=== PATIENT | female | born 1960 | race Caucasian/White ===

== ENCOUNTER 2018-04-03 13:50 | Inpatient (IN) | payer BC ==
--- NOTE | 2018-04-03 14:29 | ED ---
Shortness of Breath - HPI Summary HPI Summary: This is scribe Henry Hunt documenting for attending Usman Paz MD. Patient is a 57 y/o F w/ c/o SOB. She reports going to her oncologist today for her leukemia. Her doctor noted low O2 sat levels (patient believes she heard her doctor say 87 O2 sat) which prompted the hospital visit today. She reports constant SOB over the past month. The presence of a cough and wheezing are noted as well. Fever, chills and chest pain are denied. On triage, pain is denied and it is noted exertion worsens Sx with nothing alleviating. Hx of COPD is noted, and patient has inhaler. Home medications and allergies are reviewed and noted. - History of Current Complaint Chief Complaint: EDShortnessOfBreath Time Seen by Provider: 04/03/18 14:26 Hx Obtained From: Patient Onset/Duration: Lasting Weeks - onset a month ago, Still Present Timing: Constant Current Severity: None - pain is denied on triage Aggrevating Factors: Other - exertion Alleviating Factors: Nothing Associated Signs & Symptoms: Cough (Nonproductive) - Allergy/Home Medications Allergies/Adverse Reactions: Allergies Allergy/AdvReac Type Severity Reaction Status Date / Time No Known Allergies Allergy Verified 04/03/18 14:05 Home Medications: Home Medications Albuterol HFA INHALER* [Ventolin HFA Inhaler*] 1 puff INH Q6H PRN 04/03/18 [ History Confirmed 04/03/18] Ascorbic Acid TAB* [Vitamin C TAB*] 500 mg PO QAM 04/03/18 [History Confirmed 04/03/18] Budesonide/Formote 160/4.5(NF) [Symbicort 160/4.5 (NF)] 1 puff INH BID 04/03/18 [History Confirmed 04/03/18] Cyanocobalamin TAB* [Vitamin B12 TAB*] 500 mcg PO QAM 04/03/18 [History Confirmed 04/03/18] Multivitamins/Minerals TAB* [Theragran/minerals TAB*] 1 tab PO QAM 04/03/18 [ History Confirmed 04/03/18] Potassium Gluconate [Potassium] 600 mg PO QAM 04/03/18 [History Confirmed ] Vitamin E CAP* 200 unit PO QAM 04/03/18 [History Confirmed 04/03/18] PMH/Surg Hx/FS Hx/Imm Hx Respiratory History: Reports: Hx Chronic Obstructive Pulmonary Disease (COPD) GI History: Reports: Hx Diverticulosis Opthamlomology History: Denies: Hx Legally Blind - Cancer History Cancer Type, Location and Year: leukemia Hx Chemotherapy: No Hx Radiation Therapy: No - Surgical History Surgery Procedure, Year, and Place: none noted Infectious Disease History: No Infectious Disease History: Denies: Traveled Outside the [place] in Last 30 Days - Family History Known Family History: Negative: Blood Disorder - Social History Alcohol Use: Daily - wine daily Hx Substance Use: Yes Substance Use Type: Reports: Marijuana Hx Tobacco Use: Yes Smoking Status (MU): Heavy Every Day Tobacco Smoker Review of Systems Negative: Fever, Chills Negative: Chest Pain Positive: Shortness Of Breath, Cough, Other - wheezing All Other Systems Reviewed And Are Negative: Yes Physical Exam - Summary Physical Exam Summary: VITAL SIGNS: Reviewed. GENERAL: Patient is a well-developed and nourished female who is lying comfortable in the stretcher. Patient is not in any acute respiratory distress. HEAD AND FACE: No signs of trauma. No ecchymosis, hematomas or skull depressions. No sinus tenderness. EYES: PERRLA, EOMI x 2, No injected conjunctiva, no nystagmus. EARS: Hearing grossly intact. Ear canals and tympanic membranes are within normal limits. MOUTH: Oropharynx within normal limits. NECK: Supple, trachea is midline, no adenopathy, no JVD, no carotid bruit, no c- spine tenderness, neck with full ROM. CHEST: Symmetric, no tenderness at palpation LUNGS: Decreased breathing sounds and wheezing bilaterally is present. All else normal, no crackles. CVS: Regular rate and rhythm, S1 and S2 present, no murmurs or gallops appreciated. ABDOMEN: Soft, non-tender. No signs of distention. No rebound no guarding, and no masses palpated. Bowel sounds are normal. EXTREMITIES: FROM in all major joints, no edema, no cyanosis or clubbing. NEURO: Alert and oriented x 3. No acute neurological deficits. Speech is normal and follows commands. SKIN: Dry and warm Triage Information Reviewed: Yes Vital Signs On Initial Exam: Initial Vitals Temp Pulse Resp BP Pulse Ox 99.1 F 92 20 112/66 90 04/03/18 14:00 04/03/18 14:00 04/03/18 14:00 04/03/18 14:00 04/03/18 14:00 Vital Signs Reviewed: Yes Diagnostics - Vital Signs Vital Signs Temp Pulse Resp BP Pulse Ox 04/03/18 14:00 99.1 F 92 20 112/66 90 - Laboratory Result Diagrams: 04/03/18 14:42 04/03/18 15:25 Lab Statement: Any lab studies that have been ordered have been reviewed, and results considered in the medical decision making process. - Radiology CXR Xray Interpretation: No Acute Changes Radiology Interpretation Completed By: Radiologist - Cardiomegaly; no active cardiopulmonary disease. This report was reviewed by ED physician. - CT CTA Chest/Thorax CT Interpretation: No Acute Changes CT Interpretation Completed By: Radiologist - Limited study, no evidence for pulmonary embolism. Mild right middle lobe atelectasis. This report was reviewed by ED physician. - EKG 1440 Cardiac Rate: NL - Rate of 88 BPM EKG Rhythm: Sinus Rhythm EKG Interpretation: No ST elevation, t-wave impression in v2. Re-Evaluation - Re-Evaluation First Eval Re-Evaluation Time: 15:13 Comment: Patient's condition was re-evaled. Further orders were made. Second Eval Re-Evaluation Time: 17:15 Comment: Plan of care for patient was discussed. Patient told they would be admitted to hospital. Course/Dx - Course Assessment/Plan: This patient is a 57-year-old female who presents to the emergency department after she was transferred from Dr. Calles office due to hypoxia. The patient has history of COPD, leukemia and hemachromatosis. This patient was sent to the emergency department to rule out pulmonary embolism. On arrival to the emergency room the patient is hypoxic the O2 sat in the upper 70s to low 80s. The patient was placed in an oxygen and she went up to 90 to 92%. Blood work without any significant abnormality except for what was a count of 12.4, With increased H&H and normal platelet count. CMP shows a glucose of 102 and a BNP of 329. ABG shows a pH of 7.41, PCO2 of 60, PCO2 of 40, O2 sat of 81.6. Therefore that the patient is hypoxic. I did order BiPAP for this patient. Chest x-ray impression: Cardiomegaly. No active cardiopulmonary disease. Chest CT impression: Limited the study, no evidence for pulmonary embolism. Mild the right middle lobe atelectasis. At this time I discussed my findings and test results with Dr. Collins from oncology and he recommends for the patient to be admitted to the hospitalist services with a COPD exacerbation. Therefore I discussed the case with and Dr. Brown from the hospitalist services for accepted the patient for admission. The patient is hemodynamically stable, the patient is alert and oriented 3 and she agrees with admission. - Diagnoses Provider Diagnoses: COPD exacerbation, Hypoxia - Physician Notifications Discussed Care of Patient With: Michael Gonzalez Time Discussed With Above Provider: 17:59 Instructed by Provider To: Other - 17:59 -- Dr. Gonzalez was consulted, recommends admission to hospitalst services. 18:20 --- Dr. Mccrary from hospital services was consulted on the patient's case. Patient was admitted to the hospital. Discharge - Sign-Out/Discharge Documenting (check all that apply): Patient Departure - admit - Discharge Plan Condition: Good Disposition: ADMITTED TO [facility] Referrals: Fariha Willson MD [Primary Care Provider] -
[2018-04-03] MEDS ORDERED: methylPREDNISolone 125 MG* 2 ML VIAL IV ONE (14:32)
[2018-04-03 14:52] LABS: ABS Basophils 0 10^3/ul (0-0.2); ABS Eosinophils 0.1 10^3/ul (0-0.6); ABS Lymphocytes 1.3 10^3/ul (1.0-4.8); ABS Monocytes 1.3 10^3/ul (0-0.8); ABS Neutrophils 9.7 10^3/ul (1.5-7.7); ABS Nucleated RBC 0 10^3/ul; Eosinophil % 0.8 % (0-6); Hematocrit 55 % (35-47); Hemoglobin 18.6 g/dl (12.0-16.0); Lymphocyte % 10.2 % (25-47); Mean Corpuscular HGB Conc 34 g/dl (31-36); Mean Corpuscular Hemoglobin 35 pg (27-31); Mean Corpuscular Volume 104 fL (80-97); Nucleated Red Blood Cells % 0; Platelet Count 210 10^3/ul (150-450); Red Blood Count 5.28 10^6/ul (4.00-5.40); Red Cell Distribution Width 15 % (10.5-15); White Blood Count 12.4 10^3/ul (3.5-10.8)
[2018-04-03 15:16] LABS: EGFR Non-African American 75.9 (>60)
[2018-04-03] MEDS: Albuterol 2.5 MG/3 ML NEB.SOL* (0.083%) INH SCH ×3 (15:25→16:08)
--- NOTE | 2018-04-03 15:54 | RAD ---
HISTORY: SOB COMPARISONS: August 20, 2008 VIEWS: 4: Frontal dual-energy and lateral views of the chest. FINDINGS: CARDIOMEDIASTINAL SILHOUETTE: The cardiac silhouette is enlarged. The cardiomediastinal silhouette is otherwise normal. ROCCO: The rocco are normal. PLEURA: The costophrenic angles are sharp. No pleural abnormalities are noted. LUNG PARENCHYMA: The lungs are clear. ABDOMEN: The upper abdomen is clear. There is no subphrenic gas. BONES AND SOFT TISSUES: Mild degenerative changes are noted. OTHER: None. IMPRESSION: CARDIOMEGALY. NO ACTIVE CARDIOPULMONARY DISEASE.
[2018-04-03] MEDS ORDERED: Iohexol 350* (CONTRAST) 500 ML MDV IV ONE (16:01)
--- NOTE | 2018-04-03 17:35 | RAD ---
INDICATION: Shortness of breath, history of cancer. COMPARISON: Comparison is made with prior chest x-ray study from April 03, 2018. TECHNIQUE: A CT angiogram of the chest was performed with intravenous following intravenous injection of 82 ml of Omnipaque 350 nonionic contrast. Contiguous axial sections were obtained from the lung apices through the lung bases. Images were reconstructed in the coronal and sagittal planes. FINDINGS: The exam is limited due to streak artifact from dense contrast in the superior vena cava and the patient's body habitus. No intraluminal filling defect or pulmonary embolism is seen. The heart appears mildly enlarged. No pericardial effusion is present. The thoracic aorta is normal in caliber and demonstrates homogeneous contrast opacification. No significant enlarged mediastinal or hilar lymph nodes are seen. There is atelectasis in the right middle lobe. The lungs are otherwise clear. No pleural effusion is seen. Images of the upper abdomen demonstrate an enlarged liver with diffuse fatty infiltration. No significant focal osseous abnormality is seen. IMPRESSION: 1. LIMITED STUDY, NO EVIDENCE FOR PULMONARY EMBOLISM. 2. MILD RIGHT MIDDLE LOBE ATELECTASIS.
[2018-04-03] MEDS ORDERED: Magnesium Hydroxide LIQ* 30 ML UDC PO PRN (18:36)
[2018-04-03] MEDS ORDERED: Ondansetron INJ* 2 MG/ML VIAL IV PRN (18:36)
[2018-04-03] MEDS ORDERED: Al Hydrox/Mg Hydrox/Simet LIQ* 30 ML UDC PO PRN (18:36)
[2018-04-03] MEDS ORDERED: Albuterol/Ipratropium NEB.SOL* Albuterol 2.5 MG/Ipratropium 0.5 MG 3 ML INH PRN (18:36)
[2018-04-03] MEDS ORDERED: Acetaminophen TAB* 325 MG PO PRN (18:36)
[2018-04-03] MEDS ORDERED: Albuterol HFA INHALER* 8 gm MDI INH PRN (18:44)
[2018-04-03] MEDS ORDERED: LORazepam TAB(*) 0.5 MG PO PRN (18:46)
[2018-04-03] MEDS ORDERED: Benzonatate CAP* 100 MG PO PRN (18:50)
[2018-04-03] MEDS ORDERED: cefTRIAXone(*) 1 GM in NS 0.9% 50 ML* 50 ML IVPB ONE (20:00)
[2018-04-03] MEDS ORDERED: Azithromycin IV(*) 500 MG in NS 0.9% 250 ML* 250 ML IVPB ONE (21:00)
--- NOTE | 2018-04-03 21:06 | HP ---
CC: Dr. Fariha Willson* ADMISSION HISTORY AND PHYSICAL: DATE OF ADMISSION: 04/03/18 PATIENT OF: Attending hospitalist, Dr. Maikol Brown.* (DICTATED BY KENJI RODRIGUEZ) PRIMARY CARE PHYSICIAN: Dr. Fariha Willson. CHIEF COMPLAINT: Shortness of breath. HISTORY OF PRESENT ILLNESS: Ms. Kate is a 57-year-old female, who carries a past medical history significant for COPD with intermittent exacerbation, who presented to the emergency room earlier today after she was sent from the Hematology/Oncology office due to low oxygen saturation. The patient apparently had an appointment at oncology office today due to a recent history of low-grade leukemia, for which she has been seen by Dr. Yanes. She had her vitals taken in the office and it was noted that her oxygen saturation was around 87% according to the patient, which promoted her ED visit today. The patient herself reports no significant change in her baseline respiratory status. She has been intermittently short of breath over the past month with occasional dry cough and wheezing that usually was resolved by using her inhalers at home. She had a longstanding history of COPD; however, she continued to smoke on a daily basis. She denied any fever, productive cough, or use of oxygen at home. She was evaluated in the emergency room and was noted to have mild leukocytosis with white count of 12,000. Her ABGs were drawn and revealed marked hypoxia with oxygen saturation of 40%, which promoted calling the hospitalists to discuss admission. Her saturation eventually was better after administering oxygen in the ED in the form of nasal cannula and she denied any further wheezing at this time; however, she continued to be anxious on occasion due to her recent diagnosis of leukemia. She denied any fever, chest pain, nausea, vomiting, or any other associated symptoms. PAST MEDICAL HISTORY: As mentioned above, significant for recent diagnosis of low- grade leukemia, for which she is still getting workup done by the oncologist office. Also, has history of COPD with occasional exacerbation, morbid obesity as well as history of diverticulitis. PAST SURGICAL HISTORY: None. CURRENT MEDICATIONS: Her medications at home include: 1. Albuterol inhaler MDI 1 puff inhaled q.6 hours as needed for shortness of breath. 2. Vitamin C tablets 500 mg p.o. daily. 3. Symbicort 160/4.5 one puff inhaled b.i.d. 4. Vitamin B12 500 mcg p.o. daily. 5. Multivitamin 1 tablet p.o. daily. 6. Potassium gluconate 600 mg p.o. daily. 7. Vitamin E caps 200 units p.o. q.a.m. ALLERGIES: She has no known drug allergies. FAMILY HISTORY: Reviewed and contributory. SOCIAL HISTORY: The patient continues to smoke on a daily basis. Reports approximately 1 to 1-1/2 packs per day. She also occasionally smokes marijuana and she drinks wine daily. She lives alone and reports her son as being the healthcare proxy carrier. REVIEW OF SYSTEMS: See HPI, otherwise 14-point review of systems was examined and was essentially negative. PHYSICAL EXAMINATION GENERAL: She is a morbidly obese, middle-aged female, appears comfortable and in no acute distress or discomfort at the time of admission. VITAL SIGNS: Revealed blood pressure of 128/95, heart rate of 95, temperature of 99.1, respirations of 16 with O2 sats of 91% on 4 L oxygen. HEENT: Head is normocephalic, atraumatic. Sclerae anicteric. PERRLA. EOMs intact. Oropharynx is pink and moist. NECK: Supple. Trachea midline. No cervical adenopathy or thyromegaly. LUNGS: With decreased breath sounds noted bilaterally, but there are no wheezing, rales, or rhonchi noted. HEART: Regular rate and rhythm. Normal S1 and S2 without rubs, murmurs, or gallops. BACK: With normal curvature. No CVA tenderness. ABDOMEN: Soft, nontender, and nondistended. No hernias, masses, or hepatosplenomegaly. EXTREMITIES: Without cyanosis, clubbing, or edema. NEUROLOGIC: She is awake, alert, and oriented x3. Cranial nerves II through XII were intact. RECTAL: Exam deferred at this time. LABORATORY DATA: CBC with white count of 12,400, hemoglobin 18.6, hematocrit of 55, and platelets of 210. Her D-dimer was slightly elevated at 312. ABGs were done upon presentation with PCO2 at 60, PO2 at 40, bicarb at 31.8 with O2 saturation of 81.6. There is another order for ABGs to be drawn in the next hour. Chemistry: Sodium 142, potassium 4.4, chloride 102, CO2 of 34, BUN 14, creatinine of 0.8, glucose 102, lactic acid 1. LFTs within normal limits. BNP 329. ACCESSORY DIAGNOSTIC DATA: Chest x-ray was obtained revealing evidence of COPD. There was no active cardiopulmonary disease. Chest CTA was done to rule out any evidence of PE and it was negative. IMPRESSION AND PLAN: A 57-year-old female with longstanding history of chronic obstructive pulmonary disease as well as recent diagnosis of low-grade leukemia , who continues to smoke heavily on a daily basis, presented to the emergency room today with acute respiratory failure and hypoxia and will be admitted to telemetry for: 1. Chronic obstructive pulmonary disease with exacerbation. The patient appears to be stable at this point, but will continue her oxygen supplementation. She appears to be holding her saturation well in the emergency room; however, we discussed the possibility of using BiPAP if she continues to desat on the floor. We will use her home inhalers and add nebulizers if needed for shortness of breath. She had received a dose of Solu- Medrol in the emergency room and will continue her daily prednisone starting tomorrow. She denies any fever; however, with her mild leukocytosis and known history of exacerbation, I will give her a dose of azithromycin and ceftriaxone as a prophylactic measure to rule out any possibility of bacterial bronchitis. 2. Morbid obesity. Supportive care will be provided. I have discussed with her need to lose weight for better control of her respiratory symptoms. 3. Acute respiratory failure with hypoxia. Appears to be improving with oxygen supplementation. The patient does not use any oxygen at home and continues to smoke heavily 4. Smoking cessation. We will provide educational material and we will encourage to stop smoking. 5. DVT prophylaxis. She is at high risk and will be covered with subcu heparin. 6. Code status. She is a full code. TIME SPENT: Approximately 60 minutes was spent admitting this patient with greater than 50% on taking history and performing physical exam. I have discussed the case with Dr. Brown, my attending, who agreed to plan of care. KENJI RODRIGUEZ [id number]/[facility] #: [id number] SHAHEED
[2018-04-03] MEDS: guaiFENesin ER TAB 600 MG PO SCH (21:21)
[2018-04-03] MEDS: Heparin VIAL(*) 5000 UNITS/ML VIAL (FIVE THOUSAND) SUBCUT SCH (21:21)
[2018-04-04 06:01] LABS: ABS Basophils 0 10^3/ul (0-0.2); ABS Eosinophils 0 10^3/ul (0-0.6); ABS Lymphocytes 0.4 10^3/ul (1.0-4.8); ABS Monocytes 0.3 10^3/ul (0-0.8); ABS Neutrophils 9.8 10^3/ul (1.5-7.7); ABS Nucleated RBC 0 10^3/ul; Eosinophil % 0.1 % (0-6); Hematocrit 56 % (35-47); Hemoglobin 18.5 g/dl (12.0-16.0); Lymphocyte % 3.4 % (25-47); Mean Corpuscular HGB Conc 33 g/dl (31-36); Mean Corpuscular Hemoglobin 35 pg (27-31); Mean Corpuscular Volume 105 fL (80-97); Nucleated Red Blood Cells % 0.1; Platelet Count 212 10^3/ul (150-450); Red Blood Count 5.31 10^6/ul (4.00-5.40); Red Cell Distribution Width 15 % (10.5-15); White Blood Count 10.4 10^3/ul (3.5-10.8)
[2018-04-04] MEDS: Heparin VIAL(*) 5000 UNITS/ML VIAL (FIVE THOUSAND) SUBCUT SCH ×3 (06:08→20:09)
[2018-04-04] MEDS: Mometasone/Formoter 100/5 MDI INH SCH ×3 (06:59→19:28)
[2018-04-04] MEDS: Ascorbic Acid TAB* 500 MG PO SCH (08:22)
[2018-04-04] MEDS: guaiFENesin ER TAB 600 MG PO SCH ×2 (08:23→20:08)
[2018-04-04] MEDS: Cyanocobalamin TAB* 500 MCG PO SCH (08:23)
[2018-04-04] MEDS: Vitamin E CAP* 200 UNITS PO SCH (08:24)
[2018-04-04] MEDS: predniSONE TAB* 20 MG PO SCH (08:24)
[2018-04-04] MEDS: Multivitamins/Minerals TAB PO SCH (08:24)
[2018-04-04 08:39] LABS: Urine Appearance Clear; Urine Blood Negative (Negative); Urine Color Yellow; Urine Ketones Negative (Negative); Urine Protein 1+(30 mg/dL) (Negative); Urine Red Blood Cell Trace(0-2/hpf) (Absent); Urine Specific Gravity 1.021 (1.010-1.030); Urine Urobilinogen Negative (Negative); Urine White Blood Cell Trace(0-5/hpf) (Absent)
[2018-04-04] MEDS: Nicotine PATCH 14 MG/24 HR* PATCH TRANSDERM SCH (10:56)
[2018-04-04] MEDS: Albuterol/Ipratropium NEB.SOL* Albuterol 2.5 MG/Ipratropium 0.5 MG 3 ML INH SCH ×3 (11:59→19:28)
--- NOTE | 2018-04-04 15:33 | PN ---
Subjective Date of Service: 04/04/18 Interval History: Patient seen and examined. States she feels her breathing is not good, but oxygen is helping. Denies chest pain, not currently SOB, no n/v, no fever or chills, ambulatory. she is very tearful about being hospitalized and concerned for her situation. Objective Active Medications: Acetaminophen (Tylenol Tab*) 975 mg PO Q6H PRN PRN Reason: FEVER/PAIN Al Hydrox/Mg Hydrox/Simethicone (Maalox Plus*) 30 ml PO Q6H PRN PRN Reason: INDIGESTION Albuterol (Ventolin Hfa Inhaler*) 1 puff INH Q6H PRN PRN Reason: SOB/WHEEZING Albuterol/Ipratropium (Duoneb (Albuterol 2.5 Mg/Ipratropium 0.5 Mg)) 1 neb INH [id number] AWAKE [facility] Stop: 04/04/18 19:01 Last Admin: 04/04/18 14:55 Dose: 1 neb Ascorbic Acid (Vitamin C Tab*) 500 mg PO QAM [facility] Last Admin: 04/04/18 08:22 Dose: 500 mg Benzonatate (Tessalon Cap*) 100 mg PO BID PRN PRN Reason: COUGH Last Admin: 04/03/18 21:21 Dose: 100 mg Cyanocobalamin (Vitamin B12 Tab*) 500 mcg PO QAM [facility] Last Admin: 04/04/18 08:23 Dose: 500 mcg Guaifenesin (Mucinex*) 600 mg PO BID [facility] Last Admin: 04/04/18 08:23 Dose: 600 mg Heparin Sodium (Porcine) (Heparin Vial(*)) 5,000 units SUBCUT Q8HR [facility] Last Admin: 04/04/18 13:24 Dose: 5,000 units Azithromycin 250 mg/ Dextrose 250 mls @ 250 mls/hr IVPB Q24H [facility] Lorazepam (Ativan Tab(*)) 0.5 mg PO Q6H PRN PRN Reason: ANXIETY Magnesium Hydroxide (Milk Of Magnesia Liq*) 30 ml PO Q4H PRN PRN Reason: CONSTIPATION Mometasone Furoate/Formoterol Fumar (Dulera 100/5 Mdi*) 2 puff INH BID [facility] Last Admin: 04/04/18 07:57 Dose: 2 puff Multivitamins/Minerals (Theragran/Minerals Tab*) 1 tab PO QAM [facility] Last Admin: 04/04/18 08:24 Dose: 1 tab Nicotine (Nicotine Patch 14 Mg/24 Hr*) 1 patch TRANSDERM DAILY [facility] Last Admin: 04/04/18 10:56 Dose: 1 patch Ondansetron HCl (Zofran Inj*) 4 mg IV Q4H PRN PRN Reason: NAUSEA/VOMITING Pharmacy Profile Note (Nicotine Patch Removal Note*) 1 note PATCH OFF 2099 [facility] Prednisone (Deltasone Tab*) 40 mg PO DAILY [facility] Last Admin: 04/04/18 08:24 Dose: 40 mg Vitamin E (Vitamin E Cap*) 200 units PO QAM [facility] Last Admin: 04/04/18 08:24 Dose: 200 units Vital Signs - 8 hr 04/04/18 04/04/18 04/04/18 11:12 12:00 14:59 Temperature 98.0 F Pulse Rate 81 78 78 Respiratory 18 15 16 Rate Blood Pressure 121/64 (mmHg) O2 Sat by Pulse 93 95 91 Oximetry 04/04/18 15:19 Temperature 98.4 F Pulse Rate 85 Respiratory 18 Rate Blood Pressure 115/56 (mmHg) O2 Sat by Pulse 92 Oximetry Oxygen Devices in Use Now: Nasal Cannula Appearance: Alert, tearful Eyes: No Scleral Icterus, PERRLA Ears/Nose/Mouth/Throat: NL Teeth, Lips, Gums, Mucous Membranes Moist Neck: NL Appearance and Movements; NL JVP, Trachea Midline Respiratory: - - poor air entry, respirations shallow, diminished breath sounds throughout, mild wheeze Cardiovascular: NL Sounds; No Murmurs; No JVD, RRR, No Edema Abdominal: NL Sounds; No Tenderness; No Distention Extremities: No Edema, No Clubbing, Cyanosis Skin: No Rash or Ulcers, No Nodules or Sclerosis Neurological: Alert and Oriented x 3, NL Sensation, NL Gait Nutrition: Taking PO's Result Diagrams: 04/04/18 05:30 04/04/18 05:30 Diagnostic Imaging: Patient Name: HARMEET RAMIREZ Medical Record#: [id number] Ordering Physician: Usman Paz MD Acct.#: [id number] : 1960 Age: 57 Sex: F Location: EMERGENCY DEPARTMENT Exam Date: 04/03/18 152 ADM Status: REG ER Order Information: CTA CHEST Accession Number: [id number] CPT: 58566 INDICATION: Shortness of breath, history of cancer. COMPARISON: Comparison is made with prior chest x-ray study from April 03, 2018. TECHNIQUE: A CT angiogram of the chest was performed with intravenous following intravenous injection of 82 ml of Omnipaque 350 nonionic contrast. Contiguous axial sections were obtained from the lung apices through the lung bases. Images were reconstructed in the coronal and sagittal planes. FINDINGS: The exam is limited due to streak artifact from dense contrast in the superior vena cava and the patient's body habitus. No intraluminal filling defect or pulmonary embolism is seen. The heart appears mildly enlarged. No pericardial effusion is present. The thoracic aorta is normal in caliber and demonstrates homogeneous contrast opacification. No significant enlarged mediastinal or hilar lymph nodes are seen. There is atelectasis in the right middle lobe. The lungs are otherwise clear. No pleural effusion is seen. Images of the upper abdomen demonstrate an enlarged liver with diffuse fatty infiltration. No significant focal osseous abnormality is seen. IMPRESSION: 1. LIMITED STUDY, NO EVIDENCE FOR PULMONARY EMBOLISM. 2. MILD RIGHT MIDDLE LOBE ATELECTASIS. <Electronically signed by Nacho العلي MD in OV> 04/03/181731 Dictated By: Nacho العلي MD Dictated Date/Time: 04/03/181731 Transcribed Date/Time: 04/03/18 172 Copy to: Assess/Plan/Problems-Billing Assessment: This is a 57 year old obese female with history of tobacco abuse, COPD and hemochromotosis that was sent to the ER by oncologist for low room air saturations and acute SOB. - Patient Problems (1) COPD with exacerbation Code(s): J44.1 - CHRONIC OBSTRUCTIVE PULMONARY DISEASE W (ACUTE) EXACERBATION SNOMED Code(s): 639598674 Comment: - Received ceftriaxone, azithromycin, IV solumedrol 125mg and nebs in ED - Will continue ceftriaxone daily for anti-inflammatory properties - Continue O2, wean as tolerated - Prednisone 40mg daily x 5 days - Duonebs x3 doses q4H, albuterol PRN - IS and flutter valve - Mucinex BID - Monitor labs - Considering new O2 requirement PE ruled out by CTA in ED (2) Hemochromatosis Code(s): E83.119 - HEMOCHROMATOSIS, UNSPECIFIED SNOMED Code(s): 552352107 Comment: - Heme-onc consulted (3) Tobacco abuse counseling Code(s): Z71.6 - TOBACCO ABUSE COUNSELING SNOMED Code(s): 600589770 Comment: - counseled extensively on cessation - nicotine patch provided (4) DVT prophylaxis Code(s): DCF3925 - SNOMED Code(s): 018901203 Comment: - HSQ (5) Full code status Current Visit: Yes Status: Acute Code(s): Z78.9 - OTHER SPECIFIED HEALTH STATUS SNOMED Code(s): 375851074 Status and Disposition: remain inpatient
[2018-04-04] MEDS ORDERED: Azithromycin IV(*) 250 MG in D5W 250 ML BAG* 250 ML IVPB SCH (20:00)
[2018-04-04] MEDS: Nicotine Patch Removal NOTE PATCH OFF SCH (20:10)
[2018-04-05] MEDS: Heparin VIAL(*) 5000 UNITS/ML VIAL (FIVE THOUSAND) SUBCUT SCH ×3 (06:04→21:43)
[2018-04-05] MEDS: Mometasone/Formoter 100/5 MDI INH SCH ×2 (07:52→19:44)
[2018-04-05] MEDS: Vitamin E CAP* 200 UNITS PO SCH (08:16)
[2018-04-05] MEDS: Multivitamins/Minerals TAB PO SCH (08:16)
[2018-04-05] MEDS: predniSONE TAB* 20 MG PO SCH (08:16)
[2018-04-05] MEDS: Ascorbic Acid TAB* 500 MG PO SCH (08:16)
[2018-04-05] MEDS: Cyanocobalamin TAB* 500 MCG PO SCH (08:16)
[2018-04-05] MEDS: guaiFENesin ER TAB 600 MG PO SCH ×2 (08:16→21:43)
[2018-04-05] MEDS: Nicotine PATCH 14 MG/24 HR* PATCH TRANSDERM SCH (08:17)
[2018-04-05] MEDS ORDERED: Spiriva Inhaler DEVICE* 1 EACH DEVICE INH SCH (13:00)
--- NOTE | 2018-04-05 13:17 | PN ---
Subjective Date of Service: 04/05/18 Interval History: desat to 76 on RA with ambulation and 85% RA at rest. gained 30lbs in last few months. uses few pillows to prop up head in bed. never ECHO. Both sisters, mother and self tested positive for hemochromatosis per pt. MGF with MD in early 50s. fell 2 months ago. 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 Getting phelebotomy regularly. Denies chest pain. some clear sputum this AM. Objective Active Medications: Acetaminophen (Tylenol Tab*) 975 mg PO Q6H PRN PRN Reason: FEVER/PAIN Al Hydrox/Mg Hydrox/Simethicone (Maalox Plus*) 30 ml PO Q6H PRN PRN Reason: INDIGESTION Albuterol (Ventolin Hfa Inhaler*) 1 puff INH Q6H PRN PRN Reason: SOB/WHEEZING Ascorbic Acid (Vitamin C Tab*) 500 mg PO QAM [facility] Last Admin: 04/05/18 08:16 Dose: 500 mg Benzonatate (Tessalon Cap*) 100 mg PO BID PRN PRN Reason: COUGH Last Admin: 04/03/18 21:21 Dose: 100 mg Cyanocobalamin (Vitamin B12 Tab*) 500 mcg PO QAM [facility] Last Admin: 04/05/18 08:16 Dose: 500 mcg Device (Tiotropium Inhaler Device*) 1 each INH .USE w/ SPIRIVA CAPS [facility] Furosemide (Lasix Iv*) 40 mg IV DAILY [facility] Guaifenesin (Mucinex*) 600 mg PO BID [facility] Last Admin: 04/05/18 08:16 Dose: 600 mg Heparin Sodium (Porcine) (Heparin Vial(*)) 5,000 units SUBCUT Q8HR [facility] Last Admin: 04/05/18 06:04 Dose: 5,000 units Azithromycin 250 mg/ Dextrose 250 mls @ 250 mls/hr IVPB Q24H [facility] Last Admin: 04/04/18 20:08 Dose: 250 mls/hr Lorazepam (Ativan Tab(*)) 0.5 mg PO Q6H PRN PRN Reason: ANXIETY Magnesium Hydroxide (Milk Of Magnesia Liq*) 30 ml PO Q4H PRN PRN Reason: CONSTIPATION Mometasone Furoate/Formoterol Fumar (Dulera 100/5 Mdi*) 2 puff INH BID [facility] Last Admin: 04/05/18 07:52 Dose: 2 puff Multivitamins/Minerals (Theragran/Minerals Tab*) 1 tab PO QAM [facility] Last Admin: 04/05/18 08:16 Dose: 1 tab Nicotine (Nicotine Patch 14 Mg/24 Hr*) 1 patch TRANSDERM DAILY [facility] Last Admin: 04/05/18 08:17 Dose: 1 patch Ondansetron HCl (Zofran Inj*) 4 mg IV Q4H PRN PRN Reason: NAUSEA/VOMITING Pharmacy Profile Note (Nicotine Patch Removal Note*) 1 note PATCH OFF 2100 [facility] Last Admin: 04/04/18 20:10 Dose: 1 note Prednisone (Deltasone Tab*) 40 mg PO DAILY [facility] Last Admin: 04/05/18 08:16 Dose: 40 mg Vitamin E (Vitamin E Cap*) 200 units PO QAM [facility] Last Admin: 04/05/18 08:16 Dose: 200 units Vital Signs - 8 hr 04/05/18 04/05/18 04/05/18 07:53 08:01 10:11 Temperature 98.5 F Pulse Rate 80 80 Respiratory 18 Rate Blood Pressure 127/77 (mmHg) O2 Sat by Pulse 95 96 85 Oximetry 04/05/18 12:05 Temperature 98.3 F Pulse Rate 86 Respiratory 16 Rate Blood Pressure 143/79 (mmHg) O2 Sat by Pulse 94 Oximetry Oxygen Devices in Use Now: Nasal Cannula Appearance: NAD, super morbidly obese Eyes: No Scleral Icterus, PERRLA Ears/Nose/Mouth/Throat: NL Teeth, Lips, Gums Respiratory: - - distant lung sounds, expiratory wheeze. Cardiovascular: NL Sounds; No Murmurs; No JVD, RRR Abdominal: - - soft, nontender, distended. Extremities: - - 2-3+ pitting edema bilaterally Skin: No Rash or Ulcers, - Neurological: Alert and Oriented x 3, NL Sensation, NL Muscle Strength and Tone Nutrition: Taking PO's Result Diagrams: 04/04/18 05:30 04/04/18 05:30 Microbiology and Other Data: Microbiology 04/04/18 07:34 Urine Urine Culture - Final No Growth (<1,000 CFU/mL) Diagnostic Imaging: Patient Name: HARMEET RAMIREZ Medical Record#: [id number] Ordering Physician: Usman Paz MD Acct.#: [id number] : 1960 Age: 57 Sex: F Location: EMERGENCY DEPARTMENT Exam Date: 04/03/18 1521 ADM Status: REG ER Order Information: CTA CHEST Accession Number: [id number] CPT: 35993 INDICATION: Shortness of breath, history of cancer. COMPARISON: Comparison is made with prior chest x-ray study from April 03, 2018. TECHNIQUE: A CT angiogram of the chest was performed with intravenous following intravenous injection of 82 ml of Omnipaque 350 nonionic contrast. Contiguous axial sections were obtained from the lung apices through the lung bases. Images were reconstructed in the coronal and sagittal planes. FINDINGS: The exam is limited due to streak artifact from dense contrast in the superior vena cava and the patient's body habitus. No intraluminal filling defect or pulmonary embolism is seen. The heart appears mildly enlarged. No pericardial effusion is present. The thoracic aorta is normal in caliber and demonstrates homogeneous contrast opacification. No significant enlarged mediastinal or hilar lymph nodes are seen. There is atelectasis in the right middle lobe. The lungs are otherwise clear. No pleural effusion is seen. Images of the upper abdomen demonstrate an enlarged liver with diffuse fatty infiltration. No significant focal osseous abnormality is seen. IMPRESSION: 1. LIMITED STUDY, NO EVIDENCE FOR PULMONARY EMBOLISM. 2. MILD RIGHT MIDDLE LOBE ATELECTASIS. <Electronically signed by Nacho العلي MD in [place]> 04/03/181731 Dictated By: Nacho العلي MD Dictated Date/Time: 04/03/181731 Transcribed Date/Time: 04/03/181720 Copy to: Assess/Plan/Problems-Billing Assessment: 57 year old super morbidly obese female PMH current 30 pack year, COPD (not on home O2) and hemochromatosis p/w with month of respiratory difficulty. Combined hypoxic and hypercapnic respiratory failure suspected secondary to COPD exacerbation + likely component of undiagnosed CHF. - Patient Problems (1) Acute respiratory failure with hypoxia and hypercapnia Current Visit: Yes Status: Acute Code(s): J96.01 - ACUTE RESPIRATORY FAILURE WITH HYPOXIA; J96.02 - ACUTE RESPIRATORY FAILURE WITH HYPERCAPNIA SNOMED Code(s): 200672418 Comment: Suspected COPD exacerbation but also with story and labs concerning for CHF. BNP elevated to 329 which is quite high for someone as obese as her. Obesity hypoventilation likely also. 2-3+ edema. Never had a ECHO. Given long standing hemochromatosis and 30 lb weight gain in last few months, she will need ECHO. COPD tx as below. daily weights strict io lasix 40mg IV now and daily for now. (2) Current smoker Current Visit: Yes Status: Acute Code(s): F17.200 - NICOTINE DEPENDENCE, UNSPECIFIED, UNCOMPLICATED SNOMED Code(s): 90120042 (3) COPD with exacerbation Current Visit: Yes Status: Acute Code(s): J44.1 - CHRONIC OBSTRUCTIVE PULMONARY DISEASE W (ACUTE) EXACERBATION SNOMED Code(s): 041560002 Comment: - Received ceftriaxone, azithromycin, IV solumedrol 125mg and nebs in ED - continue azithromycin daily - Continue O2, wean as tolerated - switch back to solumedrol 40mg q12 from prednisone 40mg this AM. - Duonebs - dulera - spiriva added. - no PE on limited CTA - pulm follow-up as outpatient. Has never had PFTs. (4) DVT prophylaxis Current Visit: Yes Status: Acute Code(s): DZB1910 - SNOMED Code(s): 240455482 Comment: - HSQ (5) Full code status Current Visit: Yes Status: Acute Code(s): Z78.9 - OTHER SPECIFIED HEALTH STATUS SNOMED Code(s): 137494864 (6) Hemochromatosis Current Visit: Yes Status: Acute Code(s): E83.119 - HEMOCHROMATOSIS, UNSPECIFIED SNOMED Code(s): 006118590 Comment: ECHO as above. (7) Tobacco abuse counseling Current Visit: Yes Status: Acute Code(s): Z71.6 - TOBACCO ABUSE COUNSELING SNOMED Code(s): 551690954 Comment: - continue nicotine patch Status and Disposition: medicine inpatient
[2018-04-05] MEDS: Furosemide IV* 10 MG/ML VIAL (40 MG) IV SCH (14:52)
[2018-04-05] MEDS: methylPREDNISolone SOD 40 MG* 1 ML VIAL IV SCH (17:27)
[2018-04-05] MEDS ORDERED: Azithromycin IV(*) 250 MG in NS 0.9% 250 ML* 250 ML IVPB SCH (20:00)
[2018-04-05] MEDS: Nicotine Patch Removal NOTE PATCH OFF SCH (21:44)
[2018-04-06] MEDS: methylPREDNISolone SOD 40 MG* 1 ML VIAL IV SCH ×2 (05:40→18:07)
[2018-04-06] MEDS: Heparin VIAL(*) 5000 UNITS/ML VIAL (FIVE THOUSAND) SUBCUT SCH ×3 (05:40→21:39)
[2018-04-06] MEDS: Mometasone/Formoter 100/5 MDI INH SCH ×2 (08:13→20:37)
[2018-04-06] MEDS: Vitamin E CAP* 200 UNITS PO SCH (08:29)
[2018-04-06] MEDS: Ascorbic Acid TAB* 500 MG PO SCH (08:29)
[2018-04-06] MEDS: Cyanocobalamin TAB* 500 MCG PO SCH (08:29)
[2018-04-06] MEDS: Multivitamins/Minerals TAB PO SCH (08:30)
[2018-04-06] MEDS: Furosemide IV* 10 MG/ML VIAL (40 MG) IV SCH ×2 (08:30→14:26)
[2018-04-06] MEDS: Nicotine PATCH 14 MG/24 HR* PATCH TRANSDERM SCH (08:30)
[2018-04-06] MEDS: guaiFENesin ER TAB 600 MG PO SCH ×2 (08:30→21:39)
--- NOTE | 2018-04-06 11:00 | PN ---
Subjective Date of Service: 04/06/18 Interval History: Recorded weight up from 102.4 to 103.2. Net even, drank 2.1L. Urinating a lot on lasix . Still on 3L O2, sometimes going to bathroom did not put on. Objective Active Medications: Acetaminophen (Tylenol Tab*) 975 mg PO Q6H PRN PRN Reason: FEVER/PAIN Al Hydrox/Mg Hydrox/Simethicone (Maalox Plus*) 30 ml PO Q6H PRN PRN Reason: INDIGESTION Albuterol (Ventolin Hfa Inhaler*) 1 puff INH Q6H PRN PRN Reason: SOB/WHEEZING Ascorbic Acid (Vitamin C Tab*) 500 mg PO QAM [facility] Last Admin: 04/06/18 08:29 Dose: 500 mg Benzonatate (Tessalon Cap*) 100 mg PO BID PRN PRN Reason: COUGH Last Admin: 04/03/18 21:21 Dose: 100 mg Cyanocobalamin (Vitamin B12 Tab*) 500 mcg PO QAM [facility] Last Admin: 04/06/18 08:29 Dose: 500 mcg Device (Tiotropium Inhaler Device*) 1 each INH .USE w/ SPIRIVA CAPS [facility] Guaifenesin (Mucinex*) 600 mg PO BID [facility] Last Admin: 04/06/18 08:30 Dose: 600 mg Heparin Sodium (Porcine) (Heparin Vial(*)) 5,000 units SUBCUT Q8HR [facility] Last Admin: 04/06/18 05:40 Dose: 5,000 units Azithromycin 250 mg/ Sodium (Chloride) 250 mls @ 250 mls/hr IVPB Q24H [facility] Last Admin: 04/05/18 21:43 Dose: 250 mls/hr Lorazepam (Ativan Tab(*)) 0.5 mg PO Q6H PRN PRN Reason: ANXIETY Magnesium Hydroxide (Milk Of Magnesia Liq*) 30 ml PO Q4H PRN PRN Reason: CONSTIPATION Methylprednisolone Sodium Succinate (Solu-Medrol 40 Mg) 40 mg IV Q12H [facility] Last Admin: 04/06/18 05:40 Dose: 40 mg Mometasone Furoate/Formoterol Fumar (Dulera 100/5 Mdi*) 2 puff INH BID [facility] Last Admin: 04/06/18 08:13 Dose: 2 puff Multivitamins/Minerals (Theragran/Minerals Tab*) 1 tab PO QAM [facility] Last Admin: 04/06/18 08:30 Dose: 1 tab Nicotine (Nicotine Patch 14 Mg/24 Hr*) 1 patch TRANSDERM DAILY [facility] Last Admin: 04/06/18 08:30 Dose: 1 patch Ondansetron HCl (Zofran Inj*) 4 mg IV Q4H PRN PRN Reason: NAUSEA/VOMITING Pharmacy Profile Note (Nicotine Patch Removal Note*) 1 note PATCH OFF 2100 [facility] Last Admin: 04/05/18 21:44 Dose: 1 note Vitamin E (Vitamin E Cap*) 200 units PO QAM [facility] Last Admin: 04/06/18 08:29 Dose: 200 units Vital Signs - 8 hr 04/06/18 04/06/18 04/06/18 03:45 07:24 08:00 Temperature 98.2 F 98.9 F Pulse Rate 72 66 Respiratory 20 16 16 Rate Blood Pressure 136/65 138/63 (mmHg) O2 Sat by Pulse 91 95 Oximetry Oxygen Devices in Use Now: Nasal Cannula Appearance: NAD, sitting in chair. Eyes: No Scleral Icterus, PERRLA Ears/Nose/Mouth/Throat: NL Teeth, Lips, Gums Neck: NL Appearance and Movements; NL JVP Respiratory: - - distant lung sounds, no wheezing, rales or rhonchi. Cardiovascular: NL Sounds; No Murmurs; No JVD, RRR Abdominal: - - soft, nontender, morbidly obese. Extremities: - - 2+ edema b/l lower extremities. Skin: No Rash or Ulcers Neurological: Alert and Oriented x 3, NL Muscle Strength and Tone Nutrition: Taking PO's Result Diagrams: 04/04/18 05:30 04/06/18 06:28 Additional Lab and Data: Laboratory Results - last 24 hr 04/06/18 04/06/18 06:28 06:29 Sodium 144 Potassium 5.0 Chloride 103 Carbon Dioxide 37 H Anion Gap 4 BUN 13 Creatinine 0.54 Est GFR ( Amer) 140.3 Est GFR (Non-Af Amer) 116.0 BUN/Creatinine Ratio 24.1 H Glucose 104 H Hemoglobin A1c 6.3 H Calcium 9.3 Magnesium 2.3 Microbiology and Other Data: Microbiology 04/04/18 07:34 Urine Urine Culture - Final No Growth (<1,000 CFU/mL) Diagnostic Imaging: Patient Name: HARMEET RAMIREZ Record#: [id number] Ordering Physician: Usman Paz MD Acct.#: [id number] : 1960 Age: 57 Sex: F Location: EMERGENCY DEPARTMENT Exam Date: 04/03/18 152 ADM Status: REG ER Order Information: CTA CHEST Accession Number: [id number] CPT: 11298 INDICATION: Shortness of breath, history of cancer. COMPARISON: Comparison is made with prior chest x-ray study from April 03, 2018. TECHNIQUE: A CT angiogram of the chest was performed with intravenous following intravenous injection of 82 ml of Omnipaque 350 nonionic contrast. Contiguous axial sections were obtained from the lung apices through the lung bases. Images were reconstructed in the coronal and sagittal planes. FINDINGS: The exam is limited due to streak artifact from dense contrast in the superior vena cava and the patient's body habitus. No intraluminal filling defect or pulmonary embolism is seen. The heart appears mildly enlarged. No pericardial effusion is present. The thoracic aorta is normal in caliber and demonstrates homogeneous contrast opacification. No significant enlarged mediastinal or hilar lymph nodes are seen. There is atelectasis in the right middle lobe. The lungs are otherwise clear. No pleural effusion is seen. Images of the upper abdomen demonstrate an enlarged liver with diffuse fatty infiltration. No significant focal osseous abnormality is seen. IMPRESSION: 1. LIMITED STUDY, NO EVIDENCE FOR PULMONARY EMBOLISM. 2. MILD RIGHT MIDDLE LOBE ATELECTASIS. <Electronically signed by Nacho العلي MD in [place]> 04/03/181731 Dictated By: Nacho العلي MD Dictated Date/Time: 04/03/181731 Transcribed Date/Time: 04/03/181720 Copy to: Assess/Plan/Problems-Billing Assessment: 57 year old super morbidly obese (BMI 48) female PMH current 30 pack year, COPD (not on home O2) and hemochromatosis p/w with month of respiratory difficulty. Combined hypoxic and hypercapnic respiratory failure suspected secondary to COPD exacerbation + likely component of undiagnosed CHF. - Patient Problems (1) Acute respiratory failure with hypoxia and hypercapnia Current Visit: Yes Status: Acute Code(s): J96.01 - ACUTE RESPIRATORY FAILURE WITH HYPOXIA; J96.02 - ACUTE RESPIRATORY FAILURE WITH HYPERCAPNIA SNOMED Code(s): 561215643 Comment: Suspected COPD exacerbation but also with story and labs concerning for CHF. BNP elevated to 329 which is quite high for someone as obese as her. Obesity hypoventilation likely also. 2-3+ edema. Never had a ECHO, hopefully can get today. Long standing hemochromatosis and 30 lb weight gain in last few months COPD tx as below. daily weights strict io lasix 40mg IV increased to BID from daily. fluid restrist to 1.5L (2) Current smoker Current Visit: Yes Status: Acute Code(s): F17.200 - NICOTINE DEPENDENCE, UNSPECIFIED, UNCOMPLICATED SNOMED Code(s): 45504165 Comment: nicotine patch. (3) COPD with exacerbation Current Visit: Yes Status: Acute Code(s): J44.1 - CHRONIC OBSTRUCTIVE PULMONARY DISEASE W (ACUTE) EXACERBATION SNOMED Code(s): 740407222 Comment: - Received ceftriaxone, azithromycin, IV solumedrol 125mg and nebs in ED - continue azithromycin daily (switch to po) - Continue O2, wean as tolerated - solumedrol 40mg q12, taper as able. - Duonebs - dulera - spiriva - no PE on limited CTA - pulm follow-up as outpatient. Has never had PFTs. (4) DVT prophylaxis Current Visit: Yes Status: Acute Code(s): UHN3323 - SNOMED Code(s): 149932796 Comment: - HSQ (5) Full code status Current Visit: Yes Status: Acute Code(s): Z78.9 - OTHER SPECIFIED HEALTH STATUS SNOMED Code(s): 405608820 (6) Hemochromatosis Current Visit: Yes Status: Acute Code(s): E83.119 - HEMOCHROMATOSIS, UNSPECIFIED SNOMED Code(s): 164731948 Comment: ECHO as above. (7) Tobacco abuse counseling Current Visit: Yes Status: Acute Code(s): Z71.6 - TOBACCO ABUSE COUNSELING SNOMED Code(s): 685624080 Comment: - continue nicotine patch Status and Disposition: medicine inpatient
--- NOTE | 2018-04-06 13:16 | ECHO ---
Patient: HARMEET RAMIREZ [facility] Rec#: [id number] : 1960 Date: 04/06/2018 Age: 57y Height: 147.3 cm / 58.0 in Weight: 102.1 kg / 225.0 lbs Sex: F BSA: 1.9 Room#: [facility] Admit Date#: 04/03/2018 Type: Inpatient Referring: Mario Lama Reading: Markos Calhoun MD Spool Hauler: Vivian Sweeney RN RDCS CC: Fariha Willson Transthoracic Echocardiogram Indication: CHF, SOB, edema BP: 136/65 HR: 76 Rhythm: NSR with PVCs Findings History: COPD, smoker, low-grade leukemia, morbid obesity. Technical Comments: The study quality is fair. The study is technically limited due to patient body habitus. The study is technically limited due to the patient's history of COPD. Left Ventricle: The left ventricular chamber size is normal. Mild to moderate concentric left ventricular hypertrophy is observed. Left ventricular systolic function is at the lower limits of normal. Subtle relative hypokinesis of the lateral and basal inferior billings[place] in some views. The estimated ejection fraction is 50-55%. There is septal flattening of the interventricular septum consistent with right ventricular volume or pressure overload. There is no consistent Doppler evidence of clinically significant diastolic dysfunction. Left Atrium: The left atrial chamber size is normal. Right Ventricle: The right ventricle wall thickness is moderately increased. The right ventricle is mildly dilated. The right ventricular global systolic function is mildly reduced. Right Atrium: The right atrial cavity size is normal. The interatrial septum appears lipomatous. There is evidence of an atrial septal aneurysm. Aortic Valve: The aortic valve leaflets are mildly thickened. There is aortic annular calcification. There is no evidence of aortic regurgitation. There is no evidence of aortic stenosis. Mitral Valve: The mitral valve leaflets are mildly thickened. There is trace to mild mitral regurgitation. There is no evidence of mitral stenosis. Tricuspid Valve: The tricuspid valve leaflets are normal. There is trace to mild tricuspid regurgitation. There is evidence that pulmonary hypertension may be underestimated. There is no tricuspid stenosis. Pulmonic Valve: The pulmonic valve structure is not well visualized. There is a trace pulmonic regurgitation. There is no pulmonic stenosis. Pericardium: There is no significant pericardial effusion. A pericardial fat pad is visualized. Aorta: There is mild dilatation of the ascending aorta. There is no dilatation of the aortic arch. There is mild dilatation of the aortic root. Pulmonary Artery: The main pulmonary artery is not well visualized. Venous: The inferior vena cava appears normal in size. There is a greater than 50% respiratory change in the inferior vena cava dimension. Summary: There was not any prior study for comparison. Conclusions The study is suboptimal due to patient body habitus. Mild to moderate concentric left ventricular hypertrophy is observed. There is septal flattening of the interventricular septum consistent with right ventricular volume or pressure overload. The estimated ejection fraction is 50-55%. Left ventricular systolic function is at the lower limits of normal. Subtle relative hypokinesis of the lateral and basal inferior billingsley in some views. There is no consistent Doppler evidence of clinically significant diastolic dysfunction. The right ventricle is mildly dilated. The right ventricle wall thickness is moderately increased. The right ventricular global systolic function is mildly reduced. There is trace to mild mitral regurgitation. There is trace to mild tricuspid regurgitation. There is mild dilatation of the ascending aorta. There is mild dilatation of the aortic root. The suboptimal images makes wall motion evaluation challenging. Consider contrast enhancement to better evaluate the wall motion. Measurements Name Value Normal Range RVIDd (AP) 2D 3.9 cm (0.9 - 2.6) RVDdMajor (2D) 3.1 cm (2.2 - 4.4) RAd ISD 4CH 4.9 cm (3.4 - 4.9) RA (A4C)W 3.9 cm (2.9 - 4.6) IVSd (2D) 1.3 cm (0.6 - 1) LVPWd (2D) 1.2 cm (0.6 - 1) LVIDd (2D) 4.3 cm (3.6 - 5.4) LVIDs (2D) 3 cm - LV FS (2D) 30 % (25 - 45) Aortic Annulus 2.3 cm (1.4 - 2.6) Ao root diameter (2D) 3.6 cm (2.1 - 3.5) Ascending Ao 3.7 cm (2.1 - 3.4) Aortic arch 2.7 cm (1.8 - 3.4) LA dimension (AP) 2D 3.8 cm (2.3 - 3.8) LAd ISD 4CH 5.1 cm (2.9 - 5.3) LA ISD 4CH W 4 cm (2.5 - 4.5) Name Value Normal Range LA ESV SP 4CH (A/L) 52 ml - LA ESV SP 2CH (A/L) 60 ml - LA ESV BP (A/L) 58 ml - LA ESV BP (A/L) index 30.1 ml/m2 - LA ESV SP 4CH (MOD) 47 ml - LA ESV SP 2CH (MOD) 58 ml - Name Value Normal Range MV E-wave Vmax 1.1 m/sec - MV deceleration time 238 msec - MV A-wave Vmax 0.97 m/sec - MV E:A ratio 1.1 ratio - LV septal e' Vmax 0.07 m/sec - LV lateral e' Vmax 0.1 m/sec - LV E:e' septal ratio 15.7 ratio - LV E:e' lateral ratio 11 ratio - Name Value Normal Range AV Vmax 1.9 m/sec - AV VTI 38 cm - AV peak gradient 14 mmHg - AV mean gradient 8 mmHg - LVOT Vmax 1.1 m/sec - LVOT VTI 21.9 cm - LVOT peak gradient 5 mmHg - LVOT mean gradient 2 mmHg - WENDY Vmax 0.82 m/sec - Name Value Normal Range TR Vmax 2.6 m/sec - TR peak gradient 27 mmHg - RAP 3 mmHg - RVSP 30 mmHg - IVC diameter 2.1 cm - Name Value Normal Range PV Vmax 0.71 m/sec -
[2018-04-06] MEDS: Azithromycin TAB* 250 MG PO SCH (14:25)
[2018-04-06] MEDS: Nicotine Patch Removal NOTE PATCH OFF SCH (21:39)
[2018-04-07] MEDS: Heparin VIAL(*) 5000 UNITS/ML VIAL (FIVE THOUSAND) SUBCUT SCH ×2 (06:03→15:19)
[2018-04-07] MEDS: methylPREDNISolone SOD 40 MG* 1 ML VIAL IV SCH (06:03)
[2018-04-07 06:59] LABS: EGFR Non-African American 113.5 (>60)
[2018-04-07] MEDS: Mometasone/Formoter 100/5 MDI INH SCH (08:13)
[2018-04-07] MEDS: Furosemide IV* 10 MG/ML VIAL (40 MG) IV SCH ×2 (09:34→15:20)
[2018-04-07] MEDS: Cyanocobalamin TAB* 500 MCG PO SCH (09:36)
[2018-04-07] MEDS: Ascorbic Acid TAB* 500 MG PO SCH (09:36)
[2018-04-07] MEDS: Multivitamins/Minerals TAB PO SCH (09:36)
[2018-04-07] MEDS: guaiFENesin ER TAB 600 MG PO SCH (09:36)
[2018-04-07] MEDS: Nicotine PATCH 14 MG/24 HR* PATCH TRANSDERM SCH (09:36)
[2018-04-07] MEDS: Vitamin E CAP* 200 UNITS PO SCH (09:36)
[2018-04-07 11:28] VITALS: BP 147/79
--- NOTE | 2018-04-07 13:10 | PN ---
Subjective Date of Service: 04/07/18 Objective Active Medications: Acetaminophen (Tylenol Tab*) 975 mg PO Q6H PRN PRN Reason: FEVER/PAIN Last Admin: 04/06/18 22:45 Dose: 975 mg Al Hydrox/Mg Hydrox/Simethicone (Maalox Plus*) 30 ml PO Q6H PRN PRN Reason: INDIGESTION Albuterol (Ventolin Hfa Inhaler*) 1 puff INH Q6H PRN PRN Reason: SOB/WHEEZING Ascorbic Acid (Vitamin C Tab*) 500 mg PO QAM [facility] Last Admin: 04/07/18 09:36 Dose: 500 mg Azithromycin (Zithromax Tab*) 250 mg PO 1400 [facility] Last Admin: 04/06/18 14:25 Dose: 250 mg Benzonatate (Tessalon Cap*) 100 mg PO BID PRN PRN Reason: COUGH Last Admin: 04/03/18 21:21 Dose: 100 mg Cyanocobalamin (Vitamin B12 Tab*) 500 mcg PO QAM [facility] Last Admin: 04/07/18 09:36 Dose: 500 mcg Device (Tiotropium Inhaler Device*) 1 each INH .USE w/ SPIRIVA CAPS [facility] Furosemide (Lasix Iv*) 40 mg IV 0800,1500 [facility] Last Admin: 04/07/18 09:34 Dose: 40 mg Guaifenesin (Mucinex*) 600 mg PO BID [facility] Last Admin: 04/07/18 09:36 Dose: 600 mg Heparin Sodium (Porcine) (Heparin Vial(*)) 5,000 units SUBCUT Q8HR [facility] Last Admin: 04/07/18 06:03 Dose: 5,000 units Lorazepam (Ativan Tab(*)) 0.5 mg PO Q6H PRN PRN Reason: ANXIETY Last Admin: 04/06/18 22:46 Dose: 0.5 mg Magnesium Hydroxide (Milk Of Magnesia Liq*) 30 ml PO Q4H PRN PRN Reason: CONSTIPATION Methylprednisolone Sodium Succinate (Solu-Medrol 40 Mg) 40 mg IV Q12H [facility] Last Admin: 04/07/18 06:03 Dose: 40 mg Mometasone Furoate/Formoterol Fumar (Dulera 100/5 Mdi*) 2 puff INH BID [facility] Last Admin: 04/07/18 08:13 Dose: 2 puff Multivitamins/Minerals (Theragran/Minerals Tab*) 1 tab PO QAM [facility] Last Admin: 04/07/18 09:36 Dose: 1 tab Nicotine (Nicotine Patch 14 Mg/24 Hr*) 1 patch TRANSDERM DAILY [facility] Last Admin: 04/07/18 09:36 Dose: 1 patch Ondansetron HCl (Zofran Inj*) 4 mg IV Q4H PRN PRN Reason: NAUSEA/VOMITING Pharmacy Profile Note (Nicotine Patch Removal Note*) 1 note PATCH OFF 2100 [facility] Last Admin: 04/06/18 21:39 Dose: 1 note Vitamin E (Vitamin E Cap*) 200 units PO QAM [facility] Last Admin: 04/07/18 09:36 Dose: 200 units Vital Signs - 8 hr 04/07/18 04/07/18 04/07/18 07:16 08:13 09:55 Temperature 99.0 F Pulse Rate 76 75 Respiratory 20 16 16 Rate Blood Pressure 142/80 (mmHg) O2 Sat by Pulse 96 93 Oximetry 04/07/18 11:21 Temperature 98.9 F Pulse Rate 81 Respiratory 16 Rate Blood Pressure 147/79 (mmHg) O2 Sat by Pulse 93 Oximetry Oxygen Devices in Use Now: Nasal Cannula Result Diagrams: 04/04/18 05:30 04/07/18 05:47 Additional Lab and Data: Laboratory Results - last 24 hr 04/06/18 04/06/18 06:28 06:29 Sodium 144 Potassium 5.0 Chloride 103 Carbon Dioxide 37 H Anion Gap 4 BUN 13 Creatinine 0.54 Est GFR ( Amer) 140.3 Est GFR (Non-Af Amer) 116.0 BUN/Creatinine Ratio 24.1 H Glucose 104 H Hemoglobin A1c 6.3 H Calcium 9.3 Magnesium 2.3 Microbiology and Other Data: Microbiology 04/04/18 07:34 Urine Urine Culture - Final No Growth (<1,000 CFU/mL) Diagnostic Imaging: Patient Name: HARMEET RAMIREZ Medical Record#: [id number] Ordering Physician: Usman Paz MD Acct.#: [id number] : 1960 Age: 57 Sex: F Location: EMERGENCY DEPARTMENT Exam Date: 04/03/18 1521 ADM Status: REG ER Order Information: CTA CHEST Accession Number: [id number] CPT: 44410 INDICATION: Shortness of breath, history of cancer. COMPARISON: Comparison is made with prior chest x-ray study from April 03, 2018. TECHNIQUE: A CT angiogram of the chest was performed with intravenous following intravenous injection of 82 ml of Omnipaque 350 nonionic contrast. Contiguous axial sections were obtained from the lung apices through the lung bases. Images were reconstructed in the coronal and sagittal planes. FINDINGS: The exam is limited due to streak artifact from dense contrast in the superior vena cava and the patient's body habitus. No intraluminal filling defect or pulmonary embolism is seen. The heart appears mildly enlarged. No pericardial effusion is present. The thoracic aorta is normal in caliber and demonstrates homogeneous contrast opacification. No significant enlarged mediastinal or hilar lymph nodes are seen. There is atelectasis in the right middle lobe. The lungs are otherwise clear. No pleural effusion is seen. Images of the upper abdomen demonstrate an enlarged liver with diffuse fatty infiltration. No significant focal osseous abnormality is seen. IMPRESSION: 1. LIMITED STUDY, NO EVIDENCE FOR PULMONARY EMBOLISM. 2. MILD RIGHT MIDDLE LOBE ATELECTASIS. <Electronically signed by Nacho العلي MD in [place]> 04/03/181731 Dictated By: Nacho العلي MD Dictated Date/Time: 04/03/181731 Transcribed Date/Time: 04/03/18 172 Copy to: Assess/Plan/Problems-Billing Assessment: 57 year old super morbidly obese (BMI 48) female PMH current 30 pack year, COPD (not on home O2) and hemochromatosis p/w with month of respiratory difficulty. Combined hypoxic and hypercapnic respiratory failure suspected secondary to COPD exacerbation + likely component of undiagnosed CHF. - Patient Problems (1) COPD with exacerbation Code(s): J44.1 - CHRONIC OBSTRUCTIVE PULMONARY DISEASE W (ACUTE) EXACERBATION SNOMED Code(s): 048024894 Comment: - Received ceftriaxone, azithromycin, IV solumedrol 125mg and nebs in ED - continue azithromycin daily (switch to po) - Continue O2, wean as tolerated - solumedrol 40mg q12, taper as able. - Duonebs - dulera - spiriva - no PE on limited CTA - pulm follow-up as outpatient. Has never had PFTs. (2) Hemochromatosis Code(s): E83.119 - HEMOCHROMATOSIS, UNSPECIFIED SNOMED Code(s): 713584124 Comment: ECHO as above. (3) Tobacco abuse counseling Code(s): Z71.6 - TOBACCO ABUSE COUNSELING SNOMED Code(s): 485936060 Comment: - continue nicotine patch (4) DVT prophylaxis Code(s): LQL2713 - SNOMED Code(s): 840927008 Comment: - HSQ (5) Full code status Current Visit: Yes Status: Acute Code(s): Z78.9 - OTHER SPECIFIED HEALTH STATUS SNOMED Code(s): 533678677 Status and Disposition: medicine inpatient
[2018-04-07] MEDS: Azithromycin TAB* 250 MG PO SCH (15:19)
--- NOTE | 2018-04-08 14:38 | DS ---
CC: Dr. Willson * DISCHARGE SUMMARY: DATE OF ADMISSION: 04/03/18 DATE OF DISCHARGE: 04/07/18 PRIMARY CARE PROVIDER: Dr. Fariha Willson. ATTENDING PHYSICIAN: Yvrose Steele MD. MY ATTENDING FOR TODAY: Maikol Brown MD * (DICTATED BY CHRISTIE LIMA NP) HOSPITAL COURSE: This is a 57-year-old female who presented actually to Dr. Karie Yanes's office last Saturday. The patient does have a history of hemochromatosis and has not been in to see Dr. Yanes for some time. When Dr. Yanes saw her in the office, she noticed that the patient was acutely short of breath, tested her pulse oximetry and her oxygen level was in the 80s. She was sent to the emergency department for evaluation. Of significance, the patient does have history of smoking. The patient smokes in excess of 1 to 2 packs of cigarettes a day for many many years. The patient has been counselled to stop in the past. However, she has never been treated for COPD. In the emergency department, imaging of her chest does show that she is probably in a COPD exacerbation. CTA of the chest did not show any consolidation and no PE. She did not have a fever, however, she was still very acutely short of breath. She did have some mild right middle lobe atelectasis on the CAT scan but no further findings. The patient was responding initially to azithromycin, steroids and nebulizer. She was given instructions in incentive spirometry and flutter valve. She was also placed on Mucinex to help expectorate secretions. However, over the weekend, she seemed to have some increase in weight and it was thought she might have a component of heart failure. She underwent echocardiogram on the 04/05/18. Study was suboptimal due to patient's body habitus. There was mild to moderate concentric left ventricular hypertrophy, septal flattening of the intraventricular septum consistent with right ventricular volume overload. Estimated ejection fraction is 50 to 55%, left ventricular systolic function is at the lower limits of normal. Subtle relative hypokinesis of the lateral and basal inferior billings[place] in some views. There was no consistent Doppler evidence of clinically significant diastolic dysfunction. Right ventricle is mildly dilated. The right ventricle wall thickness is moderately increased. Right ventricle global systolic function is mildly reduced. There is trace mitral regurg, trace to mild tricuspid regurg, mild dilatation of the ascending aorta, mild dilatation of the aortic root. The suboptimal images make wall motion evaluation challenging , consider contrast enhancement for better evaluation of the wall motion. The patient was given IV Lasix 10 mg to help with some apparent fluid overload. She diuresed and responded well. She did not have any further episodes at that time. The patient stated that she was feeling much improved today and wished to be discharged to home; however, she still remained on continuous oxygen since admission. Walking saturations revealed an O2 sat on room of 87% with ambulation. As such, the patient will be sent home on oxygen. DISCHARGE DIAGNOSES: 1. Chronic obstructive pulmonary disease with acute exacerbation. 2. Shortness of breath secondary to chronic obstructive pulmonary disease with acute exacerbation. 3. Fluid overload, likely multifactorial. 4. Tobacco abuse, counselled. 5. Acute respiratory failure with hypoxia and hypercapnia secondary to longstanding chronic obstructive pulmonary disease. DISCHARGE MEDICATIONS: Include, 1. Vitamin E caps 200 units daily. 2. Vitamin C 500 mg daily. 3. Potassium gluconate 600 mg daily. 4. Multivitamin 1 tablet daily. 5. Vitamin B12 of 500 mcg daily. 6. Albuterol inhaler 1 puff q.6 hours as needed. 7. Symbicort 1 puff inhaled 2 times a day. 8. Prednisone 40 mg daily for 3 more days. 9. Guaifenesin 600 mg p.o. 2 times a day. 10. Spiriva 1 cap inhale daily. 11. Nicotine patch 1 patch daily. 12. Dulera 2 puffs inhale 3 times a day. 13. Azithromycin 250 mg for 3 more days. DISPOSITION: The patient was discharged to home in stable condition on oxygen. DIET: She should have a heart healthy diet. She was also counseled on weight loss given her current issues. She was counseled extensively to quit smoking. ACTIVITY: As tolerated, however, she needs to have her oxygen with her at all times and test it periodically. She was referred as an outpatient to Dr. Cindy Canales. She can call and make an appointment after she has seen her primary care provider, Dr. Fariha Willson within the next week. In terms of her hematologic disorder, I had a discussion with Dr. Yanes at admission that she follow up with Dr. Yanes after her exacerbation is cleared and then she can address her thrombocytosis and hemochromatosis as an outpatient. There is nothing urgent for her to see her this week. The patient was discharged in stable condition. All questions were answered. She stated her understanding of her new medications and her followups at the time of discharge. TIME SPENT: I spent in excess to 30 minutes interfacing with the patient, other care providers involved in this patient's care and coordinating her discharge planning process and medications. CHRISTIE LIMA NP [id number]/[facility] #: [id number] SHAHEED
== END 2018-04-07 15:29 | disposition home or self-care (01) | DRG 140 ==
LOC: ED 13:50 → MEDTELE 18:36 → OBSVTOIN 04-05 13:31
PROVIDERS: ADMIT Hospitalist; ATTEND Internal Medicine
DX: J44.1 Chronic obstructive pulmonary disease with (acute) exacerbation (principal); J96.02 Acute respiratory failure with hypercapnia; J96.01 Acute respiratory failure with hypoxia; Z68.42 Body mass index [BMI] 45.0-49.9, adult; J98.11 Atelectasis; I50.9 Heart failure, unspecified; E66.01 Morbid (severe) obesity due to excess calories; E87.79 Other fluid overload; F17.210 Nicotine dependence, cigarettes, uncomplicated; E83.119 Hemochromatosis, unspecified; Z79.899 Other long term (current) drug therapy
CPT/HCPCS: 1126F; 36415; 4004F; 71046; 71275; 80048; 80053; 80076; 81003; 81015; 82550; 82607; 82728; 82803; 83036; 83540; 83550; 83605; 83735; 83880; 84484; 85025; 85379; 86140; 87086; 93005; 93306; 94640; 99204; 99284; A9270-GY; G8428; J0456; J0696; J1644; J1940; J2920; J2930; J7512; Q9967